=== PATIENT | female | born 1970 ===

== ENCOUNTER 2016-11-14 14:27 | Emergency (ER) | payer SELFPAY ==
[2016-11-14 14:31] VITALS: BMI 34.3
[2016-11-14 14:45] LABS: BASO % 0.6 % (0.0-2.0); EOS % 0.1 % (0.0-4.0); HEMATOCRIT 37.9 % (34.0-47.0); LYMPH # 1.8 K/uL (1.0-4.3); MEAN CELL VOLUME 85.7 fL (81.0-99.0); MEAN CORPUSCULAR HEMOGLOBIN 28.2 pg (27.0-31.0); MEAN CORPUSCULAR HGB CONC 32.9 g/dL (33.0-37.0); MEAN PLATELET VOLUME 7.9 fL (7.2-11.7); MONO # 0.7 K/uL (0.0-0.8); MONO % 9.3 % (0.0-10.0); NRBC % 0.1 % (0.0-2.0); RED CELL DISTRIBUTION WIDTH 14.1 % (11.5-14.5)
[2016-11-14 14:51] LABS: CHLORIDE 101 mmol/L (98-107)
[2016-11-14 14:52] LABS: POTASSIUM 3.8 mmol/L (3.6-5.2); SODIUM 138 mmol/L (132-148)
[2016-11-14 14:54] LABS: BILIRUBIN,TOTAL 0.6 mg/dL (0.2-1.3); CARBON DIOXIDE 27 mmol/L (22-30); GFR AFRICAN-AMERICAN > 60
[2016-11-14 14:55] LABS: ALB/GLOB RATIO 1.1 (1.0-2.1); ALKALINE PHOSPHATASE 63 U/L (38-126); ALT/SGPT 47 U/L (9-52); AST/SGOT 26 U/L (14-36); BLOOD UREA NITROGEN 6 mg/dL (7-17); GLUCOSE,RANDOM 97 mg/dL (65-105); TOTAL PROTEIN 7.3 g/dL (6.3-8.3)
[2016-11-14 14:56] LABS: ALCOHOL SERUM < 10 mg/dl (0-10)
--- NOTE | 2016-11-14 18:15 | C.PDOC ---
History Of Present Illness Patient is a 45 year old female BIBA from psychiatry clinic for SI with no plan. Patient has a known Hx of bipolar disordered; came from [place] 1 week ago. Patient is awake, alert and refuses to answer questions; found to have a bag full of pharmaceuticals that include ativan and valium. Patient has not verbalized any physical complaints at this time. Time Seen by Provider: 11/14/16 14:30 Chief Complaint (Nursing): Psychiatric Evaluation History Per: Patient History/Exam Limitations: no limitations Onset/Duration Of Symptoms: Days (7) Current Symptoms Are (Timing): Still Present Suicide/Self Injury Attempted (Context): None Modifying Factor(s): None Associated Symptoms: denies: Depression, Suicidal Thoughts, Suicidal Plan Involuntary Hold By: None Recent travel outside of the [place]: No Past Medical History Reviewed: Historical Data, Nursing Documentation, Vital Signs Vital Signs: Last Vital Signs Temp 99 F 11/15/16 00:33 Pulse 82 11/15/16 00:33 Resp 18 11/15/16 00:33 BP 119/71 11/15/16 00:33 Pulse Ox 97 11/15/16 00:37 - Medical History PMH: No Chronic Diseases Surgical History: No Surg Hx Family History: States: Unknown Family Hx - Social History Hx Alcohol Use: No Hx Substance Use: No Review Of Systems Constitutional: Negative for: Fever, Chills Gastrointestinal: Negative for: Nausea, Vomiting, Diarrhea Psych: Positive for: Suicidal ideation Physical Exam - Physical Exam Appears: Non-toxic, No Acute Distress, Other (Awake, alert, nonverbal) Skin: Normal Color, Warm, Dry Head: Atraumatic, Normacephalic Oral Mucosa: Moist Chest: Symmetrical, No Tenderness Cardiovascular: Rhythm Regular, No Murmur Respiratory: Normal Breath Sounds, No Rales, No Rhonchi, No Wheezing Gastrointestinal/Abdominal: Soft, No Tenderness Neurological/Psych: Oriented x3, Normal Speech, Normal Cognition ED Course And Treatment - Laboratory Results Result Diagrams: 11/14/16 14:36 11/14/16 14:36 Lab Interpretation: Normal (ua, tox, etoh, neg.) Urine POC: Negative ECG: Interpreted By La ECG Rhythm: Sinus Rhythm ECG Interpretation: Normal Rate From EC (qtc 458 wnl) O2 Sat by Pulse Oximetry: 97 (Room air) Pulse Ox Interpretation: Normal - Radiology CXR: Interpreted by Me CXR Interpretation: Yes: No Acute Disease Progress Note: EKG, CXR and urinalysis ordered. approx 1900 pt began speaking with staff and Crisis Workers Reevaluation Time: 20:30 Reassessment Condition: Improved Critical Care Time - Critical Care Note Total Time (in mins): 90 Documented critical care: time excludes all time spent performing seperately billable procedures. Medical Decision Making Medical Decision Making: cleared for psych eval pt's cooperation waxes and wanes- initially nonverbal then later cooperative. Later agreed to voluntary inpatient eval, then refused to sign in voluntarily. 0030: pending eval by [facility] [place] for involuntary psych eval. Disposition - Disposition Disposition Time: 01:00 Condition: GOOD - Clinical Impression Clinical Impression: Bipolar 1 disorder - Scribe Statement The provider has reviewed the documentation as recorded by the Scribe Brent Hinton All medical record entries made by the Scribe were at my direction and personally dictated by me. I have reviewed the chart and agree that the record accurately reflects my personal performance of the history, physical exam, medical decision making, and the department course for this patient. I have also personally directed, reviewed, and agree with the discharge instructions and disposition. Physician Patient Turnover Patient Signed Over To: Issac Dominguez Handoff Comments: dispo per [facility] Crisis Eval
[2016-11-14 18:55] LABS: RBC URINE < 1 /hpf (0-3); URINE BACTERIA RARE (<OCC); URINE BILIRUBIN NEGATIVE (NEGATIVE); URINE BLOOD NEGATIVE (NEGATIVE); URINE COLOR Straw (YELLOW); URINE GLUCOSE (UA) NORMAL (Normal); URINE KETONE NEGATIVE (NEGATIVE); URINE LEUKOCYTE ESTERASE NEG Leu/uL (Negative); URINE PROTEIN NEGATIVE (NEGATIVE); URINE UROBILINOGEN NORMAL mg/dL (0.2-1.0); WBC URINE < 1 /hpf (0-5)
--- NOTE | 2016-11-15 08:29 | RAD ---
PROCEDURE: CHEST RADIOGRAPH, 1 VIEW HISTORY: psych screening for transfer COMPARISON: None available. FINDINGS: LUNGS: The lungs are clear. PLEURA: No pneumothorax or pleural fluid seen. CARDIOVASCULAR: Normal. OSSEOUS STRUCTURES: No significant abnormalities. VISUALIZED UPPER ABDOMEN: Normal. OTHER FINDINGS: None. IMPRESSION: No active pulmonary disease.
--- NOTE | 2016-11-15 13:35 | PCM.PSYCH ---
Initial Psychiatric Evaluation - Initial Psychiatric Evaluation Type of Admission: Involuntary Chief Complaint (in patient's own words): "Nothing" History of Present Illness and Precipitating Events: Pt is seen, chart reviewed and case discussed. She is a 45 yo LF, single, homeless and unemployed. The pt is very poor historian and gives odd and unrelated answers at times, or says "No" or "I'm OK" to questions. She was almost catatonic, mute on arrival and prior to that she had been suicidal per report. She was sent from [facility] and is noted that she lives in [facility]. She is known to have bipolar d/o and carries a bag of meds, incl. zoloft, Lyrica and Abilify. She denied any knowledge of why she had those meds with her (??) She denied having a psych illness or needing treatment, but yet she is not protesting her stay here and asked loan underwriter eye drops and a painkiller for head ache. No del/halluc. elicited but she looks somewhat internally preoccupied. Past psych: Likely previous admissions and treatments Medical hx: Fibromyalgia? She denies illness Family psych hx: Unknown Current Medications: Active Medications Generic Name Dose Route Start Last Admin Trade Name Freq PRN Reason Stop Dose Admin Aripiprazole 10 mg 11/15/16 13:45 Abilify PO DAILY NUPUR Hypromellose 0 ml 11/15/16 14:00 Tears Naturale Forte OU QID NUPUR Lorazepam 1 mg 11/15/16 13:32 Ativan PO Q4H PRN Agitation Trazodone HCl 50 mg 11/15/16 22:00 Desyrel PO HS NUPUR Past Psychiatric History - Past Psychiatric History Previous Treatment History: Inpatient Pertinent Medical Hx (Current Medical&Sleep Prob, Allergies): Allergies Allergy/AdvReac Type Severity Reaction Status Date / Time No Known Allergies Allergy Verified 11/14/16 14:38 ARIPiprazole [Abilify] 15 mg PO 11/14/16 Lorazepam [Ativan] 2 mg PO 11/14/16 Pregabalin [Lyrica] 150 mg PO 11/14/16 Propranolol [Inderal] 40 mg PO 11/14/16 Sertraline [Zoloft] 50 mg PO 11/14/16 chlorproMAZINE [chlorpromazine HCl] 100 mg PO 11/14/16 Review of Systems - Psychiatric Psychiatric: Abnormal Sleep Pattern, Anxiety. absent: Hallucinations, Homicidal Ideation, Paranoia, Suicidal Ideation Mental Status Examination - Personal Presentation Personal Presentation: Looks stated age - Affect Affect: Blunted (odd) - Motor Activity Motor Activity: Calm - Reliability in Providing Information Reliability in Providing Information: Poor, due to alteration in thoughts - Speech Speech: Tangential - Mood Mood: Anxious - Formal Thought Process Formal Thought Process: Perservation, Other (difficult to assess due to uncooperation) - Cognitive Functions Orientation: Person, Place, Time Sensorium: Alert Attention/Concentration: Easily distracted Abstract Thinking: [place] Estimate of Intelligence: Below average Judgement: Imparied, as evidence by: Poor judgement Memory: Recent impaired, as evidence by: Inability to recall events of the day, Remote impaired as evidenced by: Inability to recall sig life events - Risk Risk: Diminished functioning DSM 5 DX - DSM 5 DSM 5 Diagnosis: Psychosis - unspecified Bipolar d/o - unspecified, with catatonic sxs - Recommended/Plan of Treatment Treatment Recommendations and Plan of Treatment: Abilify for psychosis/bipolar disorder Ativan prn for agitation or if catatonic sxs resume prn meds Support and psychoed [facility] [place] has seen and accepted the pt for invol admission Collateral info 1:1 31 min
[2016-11-15] MEDS: Tears Naturale Forte (15ml) OU SCH ×3 (14:23→22:38)
[2016-11-16] MEDS: Tears Naturale Forte (15ml) OU SCH ×3 (11:45→18:45)
--- NOTE | 2016-11-16 12:07 | PCM.PYCHPN ---
Psychiatric Progress Note - Psychiatric Progress Note Patient seen today, length of contact: 18 min Patient Chief Complaint: "I'm OK" Problems Identified/Issues Discussed: The pt is seen, chart reviewed. She is still psychotic, oddly-related, has no insigt into her condition or why she is here and she even denies obvious facts like her previous treatment as if they did not happen. She is also disoriented but not delirious, likely due to her catatonic / internally preoccupied state. Still very guarded and evasive. Says no to most questions or gives an irrelevant answer. Not able to turn into voluntary today Also refused Abilify, but administrative underwriter spoke about it, will follow Medication Change: Yes (increase Abilify to 15 mg) Medical Record Reviewed: Yes Mental Status Examination - Cognitive Function Orientation: Person, Place, Time Memory: Impaired Attention: Poor Concentration: Poor Association: Loose Fund of Knowledge: Poor - Mood Mood: Anxious - Affect Affect: Blunted (odd) - Speech Speech: Soft - Formal Thought Process Formal Thought Process: Paranoia, Perservation, Other (difficult to assess due to uncooperation) - Suicidal Ideation Suicidal Ideation: No - Homicidal Ideation Homicidal Ideation: No Goal/Treatment Plan - Goal/Treatment Plan Need for Continued Stay: Severe depression anxiety, Discharge may exacerbated symptoms, Failed transitioning, Severe functional impairment Progress Toward Problem(s) and Goals/Treatment Plan: Abilify for psychosis/bipolar disorder Ativan prn for agitation or if catatonic sxs resume prn meds Support and psychoed [facility] [place] seen and accepted the pt for invol admission Collateral info 1:1
[2016-11-16 13:26] VITALS: TEMP 98.4
[2016-11-16 18:56] VITALS: BP 110/70; PULSE 74; RESP 16; O2SAT 97
== END 2016-11-16 19:40 | disposition short-term general hospital (02) ==
LOC: C.ER 14:27
DX: F31.9 Bipolar disorder, unspecified (principal); R45.851 Suicidal ideations
CPT/HCPCS: 71010; 80053; 81001; 82948; 84703; 85025; G0480